=== PATIENT | male | born 1945 | race Caucasian/White ===

== ENCOUNTER 2018-09-16 11:21 | Observation (INO) ==
[2018-09-16] MEDS ORDERED: Metoprolol Tartrate 25 MG Tablet PO ONE (12:00)
[2018-09-16] MEDS ORDERED: Sodium Chlor 0.9% Inj 500 ML IV.CONT ONE (12:00)
[2018-09-16] MEDS ORDERED: Chlorhexidine Gluconate 2% 1 Pack (2 Cloths) TOPICAL ONE (12:00)
[2018-09-16] MEDS ORDERED: Sugammadex Inj 200 MG/2 ML Vial IV.PUSH ONE (12:10)
[2018-09-16 12:49] LABS: Baso % (Auto) 0.4 % (0.0-2.0); Eos # (Auto) 0.2 th/mm3 (0.0-0.4); Eos % (Auto) 3.6 % (0.0-4.0); Hematocrit 44.7 % (39.0-51.0); Hemoglobin 15.4 gm/dL (13.0-17.0); Lymph # (Auto) 1.6 th/mm3 (1.0-4.8); Lymph % (Auto) 32.3 % (9.0-44.0); Mean Corpuscular HGB Conc 34.5 % (32.0-36.0); Mean Corpuscular Hemoglobin 33.4 pg (27.0-34.0); Mean Corpuscular Volume 96.8 fL (80.0-100.0); Mean Platelet Volume 7.3 fL (7.0-11.0); Mono # (Auto) 0.3 th/mm3 (0.0-0.9); Mono % (Auto) 6.2 % (0.0-8.0); Neut # (Auto) 2.8 th/mm3 (1.8-7.7); Neut % (Auto) 57.5 % (16.0-70.0); Platelet Count 156 th/mm3 (150-450); Red Blood Count 4.61 mil/mm3 (4.50-5.90); Red Cell Distribution Width 13.3 % (11.6-17.2); White Blood Count 4.9 th/mm3 (4.0-11.0)
--- NOTE | 2018-09-16 12:52 | ECG ---
Date Performed: 09/16/2018 Time Performed: 12:10:10 PTAGE: 73 years EKG: NORMAL Sinus rhythm ABNORMAL RHYTHM ECG PREVIOUS TRACING : 08/26/2016 09.55 No significant change from previous tracing noted. DOCTOR: Mike Villanueva Interpretating Date/Time 09/16/2018 12:50:51
[2018-09-16 13:02] LABS: Albumin 3.7 g/dL (3.4-5.0); Anion Gap 12 meq/L (5-15); Aspartate Aminotransferase 20 U/L (15-37); Blood Urea Nitrogen 14 mg/dL (7-18); Calcium 8.8 mg/dL (8.5-10.1); Carbon Dioxide 23.5 meq/L (21.0-32.0); Chloride 105 meq/L (98-107); Glomerular Filtration Rate 83 mL/min (>89); Glucose,Random 111 mg/dL (74-106); Potassium 3.8 meq/L (3.5-5.1); Sodium 140 meq/L (136-145)
[2018-09-16 13:03] LABS: Alanine Aminotransferase 33 U/L (12-78)
[2018-09-16 13:05] LABS: Alkaline Phosphatase 65 U/L (45-117); Total Protein 7.4 g/dL (6.4-8.2)
[2018-09-16] MEDS ORDERED: ceFAZolin 1 GM Premix Inj 2 GM/100 ML PIGGYBACK IV.SIG ONE (13:43)
[2018-09-16] MEDS ORDERED: fentaNYL Citrate Inj 100 MCG/2 ML Ampul ONE ×2 (14:56→14:57)
[2018-09-16] MEDS ORDERED: *morphine SULFATE 4 MG/ML PERIprocedure ONLY ONE ×2 (15:01→15:23)
[2018-09-16] MEDS ORDERED: Morphine Sulfate Inj 2 MG/ML Vial IV.PUSH PRN (15:31)
[2018-09-16] MEDS ORDERED: HYDROmorphone PF Inj 0.5 MG/0.5 ML Syringe ONE (16:04)
[2018-09-16] MEDS ORDERED: Dextrose 5%/Lactated Ringer's 1,000 ML IV.SIG SCH (19:15)
[2018-09-16] MEDS ORDERED: Sodium Chloride 0.9% 2 ML Flush PRN IV.FLUSH (19:17)
[2018-09-16] MEDS: Sodium Chloride 0.9% 2 ML Flush BID IV.FLUSH SCH (21:30)
--- NOTE | 2018-09-16 22:23 | MP ---
cc: Waldo Almonte MD, John T MD DATE OF OPERATION: 09/16/2018 PREOPERATIVE DIAGNOSIS: Ventral incisional hernia. POSTOPERATIVE DIAGNOSIS: Ventral incisional hernia. PROCEDURE PERFORMED: Repair of ventral incisional hernia with mesh. ANESTHESIA: Endotracheal. SURGEON: Waldo Almonte MD COMPLIANCE ANALYST: Andrei Camargo MD ESTIMATED BLOOD LOSS: Minimal. OPERATIVE FINDINGS: This patient had a small, probably 3-4 cm, ventral incisional hernia at the corner of a transverse supraumbilical incision. At surgery, a small hernia was found with a small amount of omentum in the hernia. The omentum was cleared from the fascia, and the fascia was closed transversely, and then the fascial closure was reinforced with a small piece of polypropylene mesh. OPERATIVE TECHNIQUE: The patient was placed on the table in the supine position with adequate general endotracheal anesthesia. The abdomen was prepped and draped in the usual manner. Transverse supraumbilical incision was made in the corner of the old transverse incision and brought down through the subcutaneous tissue, and the small ventral hernia was identified. The peritoneal cavity was entered, and the omentum was dissected free of the underside of the fascia. Once this was free, the external subcutaneous tissue was cleared from the fascia as well, and the fascia was then closed in a simple running manner transversely with a #1 single-strand PDS suture. Once this was completed, a 3 x 5 inch piece of polypropylene mesh was cut to size and then placed over the fascial closure and sutured into place with a simple running 0 Prolene suture around the edges of the mesh to the fascia. Once this was completed, the subcutaneous tissue was irrigated thoroughly with saline solution, aspirated dry, and then the subcutaneous tissue was closed with 2 interrupted 3-0 Vicryl sutures, and then the skin was closed with running 3-0 Vicryl subcuticular suture, and a dressing was applied. Sponge, needle, and instrument counts were reported as correct. Estimated blood loss was minimal. The patient tolerated the procedure well and left the operating room in good condition. MD Yasmeen ChanTT/alison , 08:39 PM , 08:45 PM
[2018-09-17 05:29] VITALS: RESP 16
[2018-09-17 05:46] LABS: Baso % (Auto) 0.3 % (0.0-2.0); Hematocrit 41.5 % (39.0-51.0); Hemoglobin 14.2 gm/dL (13.0-17.0); Lymph # (Auto) 0.9 th/mm3 (1.0-4.8); Lymph % (Auto) 11.4 % (9.0-44.0); Mean Corpuscular HGB Conc 34.2 % (32.0-36.0); Mean Corpuscular Hemoglobin 33.2 pg (27.0-34.0); Mean Corpuscular Volume 96.9 fL (80.0-100.0); Mean Platelet Volume 7.6 fL (7.0-11.0); Mono # (Auto) 0.3 th/mm3 (0.0-0.9); Mono % (Auto) 3.8 % (0.0-8.0); Neut # (Auto) 6.6 th/mm3 (1.8-7.7); Neut % (Auto) 84.5 % (16.0-70.0); Platelet Count 168 th/mm3 (150-450); Red Blood Count 4.28 mil/mm3 (4.50-5.90); Red Cell Distribution Width 13.3 % (11.6-17.2); White Blood Count 7.8 th/mm3 (4.0-11.0)
[2018-09-17 06:32] LABS: Anion Gap 7 meq/L (5-15); Blood Urea Nitrogen 10 mg/dL (7-18); Calcium 8.1 mg/dL (8.5-10.1); Carbon Dioxide 25.9 meq/L (21.0-32.0); Chloride 106 meq/L (98-107); Glomerular Filtration Rate Greater Than 89 mL/min (>89); Glucose,Random 120 mg/dL (74-106); Potassium 3.9 meq/L (3.5-5.1); Sodium 139 meq/L (136-145)
--- NOTE | 2018-09-17 08:09 | P.PNCS ---
Subjective Colorectal Surgery Post Op Day #: 1 Interval history: Doing well. No N or V. No BMs. Wants to go home. Objective Result Diagrams: 09/17/18 04:05 09/17/18 04:05 Objective Remarks: Abd: flat,dressing dry Assessment and Plan - Plan D/C today Appt with me 2 weeks.
[2018-09-17 08:25] VITALS: BP 116/64; PULSE 48; TEMP 98.1; O2SAT 94
[2018-09-17] MEDS: Sodium Chloride 0.9% 2 ML Flush BID IV.FLUSH SCH (09:59)
== END 2018-09-17 10:28 | disposition home or self-care (01) ==
LOC: HSDC 11:21 → N07 11:21
PROVIDERS: ADMIT Colon & Rectal Surgery; ATTEND Colon & Rectal Surgery